=== PATIENT | male | born 1975 | race Caucasian/White ===

== ENCOUNTER 2018-10-07 12:41 | Day surgery (SDC) | payer OTHER ==
[~2018-10-07 12:41] MED LIST: CEFAZOLIN 2 GM/50 ML (PMX) 50 ML IVPB; SOD CHLORIDE 0.9% 1,000 ML IV
[2018-10-07] MEDS ORDERED: CEFAZOLIN 2 GM/50 ML (PMX) 50 ML IVPB (13:00)
[2018-10-07] MEDS ORDERED: SOD CHLORIDE 0.9% 1,000 ML IV (13:00)
[2018-10-07 13:32] LABS: ADD MAN DIFF? NO
[2018-10-07 13:34] LABS: WHITE BLOOD COUNT 6.3 10^3/ul (4.8-10.8)
[2018-10-07 13:34] LABS: BASOPHILS % 0.5 % (0.0-2.0); EOSINOPHILS # 0.2 10^3/ul (0.0-0.5); EOSINOPHILS % 2.5 % (0.0-7.0); HEMATOCRIT 43.4 % (42.0-52.0); HEMOGLOBIN 14.4 g/dl (14.0-18.0); LYMPHOCYTES # 2.6 10^3/ul (0.8-2.9); LYMPHOCYTES % 41.7 % (15.0-51.0); MEAN CORPUSCULAR HEMOGLOBIN 31.2 pg (29.0-33.0); MEAN CORPUSCULAR HGB CONC 33.2 g/dl (32.0-37.0); MEAN CORPUSCULAR VOLUME 94.1 fl (82.0-101.0); MEAN PLATELET VOLUME 8.9 fl (7.4-10.4); MONOCYTE # 0.5 10^3/ul (0.3-0.9); MONOCYTES % 7.9 % (0.0-11.0); NEUTROPHIL # 2.9 10^3/ul (1.6-7.5); NEUTROPHILS % 46.8 % (39.0-77.0); PLATELET COUNT 239 10^3/UL (140-415); RED BLOOD COUNT 4.61 10^6/ul (4.70-6.10); RED CELL DISTRIBUTION WIDTH 12.2 % (11.5-14.5)
[2018-10-07 13:50] LABS: ALANINE AMINOTRANSFERASE 45 IU/L (13-69); ALBUMIN 4.5 g/dl (3.3-4.9); ALBUMIN/GLOBULIN RATIO 1.36; ALKALINE PHOSPHATASE 90 IU/L (42-121); ANION GAP 9 (5-13); ASPARTATE AMINO TRANSFERASE 48 IU/L (15-46); BILIRUBIN,INDIRECT 0.4 mg/dl (0-1.1); BILIRUBIN,TOTAL 0.4 mg/dl (0.2-1.3); BLOOD UREA NITROGEN 20 mg/dl (7-20); CALCIUM 9.4 mg/dl (8.4-10.2); CARBON DIOXIDE 28 mmol/L (21-31); CHLORIDE 105 mmol/L (97-110); CREATININE 0.95 mg/dl (0.61-1.24); Estimated GFR > 60 mL/min (>60); GLUCOSE 94 mg/dl (70-220); POTASSIUM 4.2 mmol/L (3.5-5.1); SODIUM 142 mmol/L (135-144); TOTAL PROTEIN 7.8 g/dl (6.1-8.1)
[2018-10-07 13:55] LABS: INR 0.89; PROTIME 12.1 Sec (11.9-14.9); PT RATIO 0.9
[2018-10-07 13:56] LABS: PARTIAL THROMBOPLASTIN TIME 28.1 Sec (23.0-35.0)
[2018-10-07] MEDS ORDERED: FENTAnyl 50 MCG/ML VIAL IV ×3 (15:30)
[2018-10-07] MEDS ORDERED: HYDROmorphONE 1 MG/5 ML IV SYRINGE IV ×3 (15:30)
[2018-10-07] MEDS ORDERED: MEPERIDINE 25 MG INJ IV (15:30)
[2018-10-07] MEDS ORDERED: DIPHENHYDRAMINE 50 MG INJ IV (15:30)
[2018-10-07] MEDS ORDERED: PROCHLORPERAZINE 10 MG INJ IV (15:30)
[2018-10-07] MEDS ORDERED: ONDANSETRON 4 MG INJ IV ×2 (15:30→16:30)
[2018-10-07] MEDS ORDERED: MIDAZOLAM 1 MG/ML 2 ML INJ ×2 (15:33→15:41)
[2018-10-07] MEDS ORDERED: LIDOCAINE 2% (SDV) 5 ML INJ (15:38)
[2018-10-07] MEDS ORDERED: PROPOFOL 0 ML (15:38)
[2018-10-07] MEDS ORDERED: FENTAnyl 50 MCG/ML VIAL (15:41)
[2018-10-07] MEDS ORDERED: PROPOFOL 20 ML ×2 (15:45→15:48)
[2018-10-07] MEDS ORDERED: ONDANSETRON 4 MG INJ (15:52)
[2018-10-07] MEDS ORDERED: FAMOTIDINE 20 MG INJ (15:52)
[2018-10-07] MEDS ORDERED: CEFAZOLIN 1 GM INJ (15:52)
[2018-10-07] MEDS ORDERED: DEXAMETHASONE 4 MG/ML 5 ML INJ (15:52)
[2018-10-07] MEDS: BUPIVACAINE 0.5%/EPI (SDV) 30 ML INJ (16:07)
[2018-10-07] MEDS ORDERED: IBUPROFEN 600 MG TAB PO (16:30)
[2018-10-07] MEDS: OXYCODONE/ACETAMINOPHEN (5/325) TAB PO (17:56)
== END 2018-10-07 18:25 | disposition home or self-care (01) ==
LOC: SDS 12:41
DX: D17.1 Benign lipomatous neoplasm of skin and subcutaneous tissue of trunk (principal); I10 Essential (primary) hypertension
CPT/HCPCS: 11406; 80053; 85025; 85610; 85730; 88307